=== PATIENT | male | born 1970 | race Caucasian/White ===

== ENCOUNTER 2018-01-29 14:12 | Emergency (ER) | payer SELFPAY ==
[2018-01-29] MEDS: IBUPROFEN 200 MG TAB PO (15:10)
== END 2018-01-29 15:28 | disposition home or self-care (01) ==
LOC: FTE 14:12
DX: S40.021A Contusion of right upper arm, initial encounter (principal); X58.XXXA Exposure to other specified factors, initial encounter; Y92.9 Unspecified place or not applicable
CPT/HCPCS: 99282